=== PATIENT | female | born 1985 | race Caucasian/White ===

== ENCOUNTER 2016-06-10 12:01 | Emergency (ER) | payer OTHER ==
[2016-06-10 12:18] VITALS: BP 121/73
--- NOTE | 2016-06-10 12:28 | UC ---
HPI Wound/Suture Re-check - HPI Summary HPI Summary: The patient comes in today for: 1. Laceration to the left hand: Onset: 10 days ago. Palliative/provocative: Movement is "tight." Quality: There is mild "bruise pain." Region: Ventral and medial side of the 1st phalanx of the left little finger. Severity: 2/10 Time: Constant. Associated symptoms: Event: She was trying to remove an avocado pit with a knife and cut herself. She had the sutures put in at [facility] ER. 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 * - History Of Current Complaint Chief Complaint: UCSkin Stated Complaint: SUTURE REMOVAL Time Seen by Provider: 06/10/16 12:20 Hx Obtained From: Patient, Family/[employer] Operator - Allergies/Home Medications Allergies/Adverse Reactions: Allergies Allergy/AdvReac Type Severity Reaction Status Date / Time seasonal Allergy Runny Nose Uncoded 06/10/16 12:18 Home Medications: Home Medications Ibuprofen TAB* [Motrin TAB* 600 MG] 600 mg PO DAILY PRN 06/10/16 [History Confirmed 06/10/16] Otc Cold Med 1 dose PO DAILY PRN 06/10/16 [History] PMH/Surg Hx/FS Hx/Imm Hx Previously Healthy: Yes Endocrine History Of: Denies: Diabetes, Thyroid Disease, Hyperthyroidism, Hypothyroidism, Dyslipidemia Cardiovascular History Of: Denies: Cardiac Disorders, Hypertension, Pacemaker/ICD, Myocardial Infarction , Congestive Heart Failure, Atrial Fibrillation, Deep Vein Thrombosis, Bleeding Disorders Respiratory History Of: Denies: COPD, Asthma, Bronchitis, Pneumonia, Pulmonary Embolism GI/ History Of: Denies: Gastroesophageal Reflux, Ulcer, Gastrointestinal Bleed, Gall Bladder Disease, Kidney Stones, Diverticulitis, Renal Disease, Urosepsis Neurological History Of: Denies: TIA, CVA, Dementia, Seizures, Migraine Psychological History Of: Denies: Anxiety, Depression, Bipolar Disorder, Schizophrenia, Post Traumatic Stress Disorder Cancer History Of: Denies: Lung Cancer, Colorectal Cancer, Breast Cancer, Prostate Cancer, Cervical Cancer Other History Of: Negative For: HIV, Hepatitis B, Hepatitis C, Anticoagulant Therapy - Surgical History Surgical History: None - Family History Known Family History: Positive: Cardiac Disease Negative: Hypertension - Social History Alcohol Use: Weekly Alcohol Amount: 3-5 Substance Use Type: None Smoking Status (MU): Never Smoked Tobacco Review of Systems Constitutional: Negative Skin: Negative Eyes: Negative ENT: Negative Respiratory: Negative Cardiovascular: Negative Gastrointestinal: Negative Genitourinary: Negative All Other Systems Reviewed And Are Negative: Yes Physical Exam Triage Information Reviewed: Yes Appearance: Well-Appearing, No Pain Distress, Well-Nourished Vital Signs: Initial Vital Signs Temp 99 F 06/10/16 12:09 Pulse 69 06/10/16 12:09 Resp 18 06/10/16 12:09 BP 121/73 06/10/16 12:09 Vital Signs Reviewed: Yes Eyes: Positive: Conjunctiva Clear. Negative: Discharge ENT: Positive: Hearing grossly normal. Negative: Pharyngeal erythema, Nasal congestion, Nasal drainage, TM bulging, TM dull, TM red, Tonsillar swelling, Tonsillar exudate Dental: Negative: Gross Decay/Caries @, Dental Fracture @ Neck: Positive: Supple, Nontender, No Lymphadenopathy. Negative: Nuchal Rigidity Respiratory: Positive: Chest non-tender, Lungs clear, No respiratory distress, No accessory muscle use. Negative: Crackles, Wheezing Cardiovascular: Positive: RRR, No Murmur Abdomen Description: Positive: Nontender, No Organomegaly, Soft. Negative: Distended, Guarding Musculoskeletal: Positive: Strength Intact, ROM Intact Neurological: Positive: Alert, Muscle Tone Normal Psychological: Positive: Age Appropriate Behavior, Consolable Skin: Positive: Other - Laceration to base of the left little finger. Healing well, no dehiscense. No erythema. She has full extension and the flexion of the distal and middle phalanx.. Negative: rashes, breakdown Course/Dx - Course Course Of Treatment: 7 sutures were removed. Steri strips applied (3). - Differential Dx - Laceration/Wound Provider Diagnoses: Wound/suture removal base of left little finger. Discharge - Discharge Plan Condition: Stable Disposition: HOME Patient Education Materials: Stitches Removal (ED), Steristrips (ED) Additional Instructions: Please see your primary care provider if you have any new problems. Otherwise, if you do well with your finger, please see your primary care provider as he or she has recommended in the past. Use [id number] medications as needed for pain.
== END 2016-06-10 13:04 | disposition home or self-care (01) ==
LOC: EDBD → UCCORT 12:01
DX: Z48.02 Encounter for removal of sutures (principal)
CPT/HCPCS: 99201; G0463

== ENCOUNTER 2017-04-02 08:49 | Inpatient (IN) | payer OTHER ==
[2017-04-02] MEDS ORDERED: Dibucaine 1% 28.35 GM TUBE PR PRN (10:33)
[2017-04-02] MEDS ORDERED: Glycerin ADULT SUPP PR PRN (10:33)
[2017-04-02] MEDS ORDERED: Witch Hazel PAD* JAR TOPICAL PRN (10:33)
[2017-04-02] MEDS ORDERED: Acetaminophen TAB* 325 MG PO PRN (10:33)
[2017-04-02] MEDS: Ibuprofen TAB* 600 MG PO PRN ×3 (12:11→23:50)
[2017-04-02] MEDS: Docusate CAP* 100 MG PO SCH ×2 (14:06→20:51)
[2017-04-03] MEDS: Ibuprofen TAB* 600 MG PO PRN ×2 (06:05→11:48)
[2017-04-03] MEDS ORDERED: Ferrous Gluconate TAB* 324 MG TAB PO SCH (09:00)
[2017-04-03] MEDS: Docusate CAP* 100 MG PO SCH ×2 (09:00→11:54)
[2017-04-03 09:37] LABS: ABS Basophils 0 10^3/ul (0-0.2); ABS Eosinophils 0.1 10^3/ul (0-0.6); ABS Lymphocytes 1.4 10^3/ul (1.0-4.8); ABS Monocytes 0.7 10^3/ul (0-0.8); ABS Neutrophils 9.3 10^3/ul (1.5-7.7); ABS Nucleated RBC 0 10^3/ul; Eosinophil % 0.5 % (0-6); Hematocrit 31 % (35-47); Hemoglobin 10.7 g/dl (12.0-16.0); Lymphocyte % 11.9 % (25-47); Mean Corpuscular HGB Conc 34 g/dl (31-36); Mean Corpuscular Hemoglobin 30 pg (27-31); Mean Corpuscular Volume 87 fL (80-97); Mean Platelet Volume 9 um3 (7.4-10.4); Nucleated Red Blood Cells % 0; Platelet Count 204 10^3/ul (150-450); Red Cell Distribution Width 13 % (10.5-15); White Blood Count 11.4 10^3/ul (3.5-10.8)
[2017-04-03 15:18] VITALS: BP 143/98
== END 2017-04-03 16:02 | disposition home or self-care (01) | DRG 560 ==
LOC: MCHOBOUT 08:49 → MCHOB 08:52
PROVIDERS: ADMIT Midwife; ATTEND Midwife
PROC: 10E0XZZ Delivery of Products of Conception, External Approach (ICD-10-PCS; principal; 2017-04-02)
PROC: 0KQM0ZZ Repair Perineum Muscle, Open Approach (ICD-10-PCS; 2017-04-02)
DX: O70.1 Second degree perineal laceration during delivery (principal); Z37.0 Single live birth; Z3A.39 39 weeks gestation of pregnancy
CPT/HCPCS: 36415; 85025; A9270-GY